=== PATIENT | female | born 1955 | race Caucasian/White ===

== ENCOUNTER 2017-11-14 08:38 | Emergency (ER) | payer BC ==
[~2017-11-14] VITALS: Ht 175.3 cm; Wt 96.0 kg
[~2017-11-14 08:38] MED LIST: CLAR10TA7 PO; CYAN1000P SQ; FLON0.053; VENL37.5 PO; VITA500015 PO; ZOLP1TAB32 PO
[2017-11-14] MEDS ORDERED: GADODIAMIDE PF 287 MG/ML 20 ML VIAL (for RAD MRI) IV PUSH ONE (08:39)
[2017-11-14 08:42] VITALS: PULSE 104; RESP 16; TEMP 98.6; O2SAT 97
[2017-11-14] MEDS ORDERED: SODIUM CHLOR 0.9% 1000 ML INJ 1,000 ML IV SCH (08:54)
[2017-11-14] MEDS ORDERED: ONDANSETRON ODT 4 MG TAB PO ONE (09:00)
[2017-11-14] MEDS ORDERED: KETOROLAC TROMETHAMINE 30 MG/ML (IVP) VIAL IVP ONE (09:00)
[2017-11-14] MEDS ORDERED: MORPHINE SULFATE 4 MG/ML INJ IV PUSH ONE (09:00)
[2017-11-14] MEDS ORDERED: SODIUM CHLORIDE 0.9% FLUSH 10 ML FLUSH IV FLUSH PRN (09:00)
[2017-11-14 09:10] VITALS: O2SAT 97
[2017-11-14 09:10] LABS: BILIRUBIN, URINE NEG (NEG); BLOOD, URINE LARGE (NEG); GLUCOSE,URINE NEG (NEG); KETONE, URINE NEG (NEG); NITRITE,URINE NEG (NEG); PH, URINE 5.5 (5.0-8.5); URINE COLOR YELLOW (YELLW/STRAW); URINE LEUKOCYTE ESTERASE SMALL (NEG)
--- NOTE | 2017-11-14 09:13 | PD ---
HPI Chief Complaint: Complaint Time Seen by Provider: 08:47 Travel History International Travel<30 days: Yes Contact w/Intl Traveler<30days: [place] Country Traveled to: [place] Traveled to known affect area: No History of Present Illness HPI Patient is a 62 year old female who comes in complaining of low back pain. She says she felt as if she were getting the flu last night. She says she had pain to her knees and felt very tired. She says she went to sleep and had severe chills and then the pain to her back started around 10PM. She did not take anything for the pain. She says she tried to go see her PCP, but was told to come to the ED. She says she has had some nausea, but denies vomiting. She says the pain radiates down her legs. She denies numbness or tingling. She says she has never had this pain before. She denies urinary symptoms. Severity is moderate. PFSH Past Medical History Arthritis: Yes (Rt. great toe ) Cancer: Yes (BL breast ) Chemotherapy: Yes Musculoskeletal: Yes (ARTHRITIS RT GREAT TOE) Radiation Therapy: Yes Tetanus Vaccination: < 5 Years Influenza Vaccination: Yes ?: Not Past Surgical History Body Medical Devices: Permanent retainer Pacemaker: No Other Surgery: Yes (Adenoids, eyelids lifted) Social History Alcohol Use: No Tobacco Use: No Substance Use: No Allergies-Medications (Allergen,Severity, Reaction): Coded Allergies: latex (Unverified Allergy, Mild, ADHESIVE TO BANDAID BRAND FABRIC BANDAIDS , 11/14/17) Reported Meds & Prescriptions Reported Meds & Active Scripts Active Reported Claritin (Loratadine) 5 Mg Chew 5 Mg CHEW DAILY Calcium 500 +D (Calcium Carbonate-Cholecalciferol) 500-400 Mg-Unit Tab 1 Tab PO DAILY Flonase Nasal Barry (Fluticasone Nasal Barry) 50 Mcg/Act Barry 50 Mcg EACH NARE BID Review of Systems Except as stated in HPI: all other systems reviewed are Neg General / Constitutional: Positive: Chills, No: Fever HENT: No: Headaches, Lightheadedness Cardiovascular: No: Chest Pain or Discomfort Respiratory: No: Shortness of Breath Gastrointestinal: Positive: Nausea, No: Vomiting, Abdominal Pain Genitourinary: Positive: Flank Pain, No: Dysuria Musculoskeletal: Positive: Pain Skin: No Rash, No Change in Pigmentation Neurologic: No: Weakness, Dizziness Physical Exam Narrative GENERAL: Awake and alert, in no acute distress. SKIN: Focused skin assessment warm/dry. HEAD: Atraumatic. Normocephalic. EYES: Pupils equal and round. No scleral icterus. ENT: Mucous membranes pink and moist. NECK: Trachea midline. No JVD. CARDIOVASCULAR: Regular rate and rhythm. No murmur appreciated. RESPIRATORY: No accessory muscle use. Clear to auscultation. Breath sounds equal bilaterally. GASTROINTESTINAL: Abdomen soft, non-tender, nondistended. MUSCULOSKELETAL: No obvious deformities. No clubbing. No cyanosis. No edema. Tender to palpation across the lower back. Straight leg raise negative. NEUROLOGICAL: Awake and alert. No obvious cranial nerve deficits. Motor grossly within normal limits. Normal speech. PSYCHIATRIC: Appropriate mood and affect; insight and judgment normal. Data Data Last Documented VS Vital Signs Date Time Temp Pulse Resp B/P (MAP) Pulse Ox O2 Delivery O2 Flow Rate FiO2 11/14/17 13:30 86 14 110/57 (74) 96 Room Air 11/14/17 08:42 98.6 Orders Orders Urinalysis - C+S If Indicated (11/14/17 08:44) Complete Blood Count With Diff (11/14/17 08:54) Comprehensive Metabolic Panel (11/14/17 08:54) Ct Abd/Pel W/O Iv Contrast (11/14/17 08:54) Iv Access Insert/Monitor (11/14/17 08:54) Ecg Monitoring (11/14/17 08:54) Oximetry (11/14/17 08:54) Morphine Inj (Morphine Inj) (11/14/17 09:00) Sodium Chlor 0.9% 1000 Ml Inj (Ns 1000 M (11/14/17 08:54) Sodium Chloride 0.9% Flush (Ns Flush) (11/14/17 09:00) Ketorolac Inj (Toradol Inj) (11/14/17 09:00) Ondansetron Odt (Zofran Odt) (11/14/17 09:00) Potassium Chloride (Kcl) (11/14/17 09:30) Chest, Single Ap (11/14/17 ) Influenzae A/B Antigen (11/14/17 09:45) Oxycodone-Acetamin 5-325 Mg (Percocet (11/14/17 10:30) Mri L Spine W&W/O Contrast (11/14/17 ) Labs Laboratory Tests Test 11/14/17 09:00 White Blood Count 16.7 TH/MM3 Red Blood Count 4.28 MIL/MM3 Hemoglobin 12.8 GM/DL Hematocrit 37.7 % Mean Corpuscular Volume 88.2 FL Mean Corpuscular Hemoglobin 29.9 PG Mean Corpuscular Hemoglobin Concent 33.9 % Red Cell Distribution Width 12.2 % Platelet Count 220 TH/MM3 Mean Platelet Volume 8.0 FL Neutrophils (%) (Auto) 93.5 % Lymphocytes (%) (Auto) 3.2 % Monocytes (%) (Auto) 2.0 % Eosinophils (%) (Auto) 0.0 % Basophils (%) (Auto) 1.3 % Neutrophils # (Auto) 15.7 TH/MM3 Lymphocytes # (Auto) 0.5 TH/MM3 Monocytes # (Auto) 0.3 TH/MM3 Eosinophils # (Auto) 0.0 TH/MM3 Basophils # (Auto) 0.2 TH/MM3 CBC Comment AUTO DIFF Differential Total Cells Counted 100 Neutrophils % (Manual) 83 % Band Neutrophils % 11 % Lymphocytes % 1 % Monocytes % 4 % Neutrophils # (Manual) 15.9 TH/MM3 Metamyelocytes 1 % Differential Comment FINAL DIFF MANUAL Platelet Estimate NORMAL Platelet Morphology Comment NORMAL Red Cell Morphology Comment NORMAL Urine Color YELLOW Urine Turbidity CLEAR Urine pH 5.5 Urine Specific [place] 1.025 Urine Protein NEG mg/dL Urine Glucose (UA) NEG mg/dL Urine Ketones NEG mg/dL Urine Occult Blood LARGE Urine Nitrite NEG Urine Bilirubin NEG Urine Urobilinogen 0.2 MG/DL Urine Leukocyte Esterase SMALL Urine WBC 3-5 /hpf Urine Squamous Epithelial Cells 0-5 /hpf Urine Transitional Epithelial Cells 0-5 /hpf Urine Bacteria FEW /hpf Urine Hyaline Casts 0-2 /lpf Microscopic Urinalysis Comment CULT NOT INDICATED Blood Urea Nitrogen 15 MG/DL Creatinine 0.75 MG/DL Random Glucose 112 MG/DL Total Protein 7.1 GM/DL Albumin 3.4 GM/DL Calcium Level 8.6 MG/DL Alkaline Phosphatase 96 U/L Aspartate Amino Transf (AST/SGOT) 15 U/L Alanine Aminotransferase (ALT/SGPT) 18 U/L Total Bilirubin 0.4 MG/DL Sodium Level 138 MEQ/L Potassium Level 3.1 MEQ/L Chloride Level 105 MEQ/L Carbon Dioxide Level 23.7 MEQ/L Anion Gap 9 MEQ/L Estimat Glomerular Filtration Rate 79 ML/MIN MDM Medical Decision Making Medical Screen Exam Complete: Yes Emergency Medical Condition: Yes Medical Record Reviewed: Yes Differential Diagnosis UTI vs renal stone vs sciatica vs abscess Narrative Course Patient is a 62-year-old female comes in complaining of back pain. She says it was preceded by chills last night. Exam shows tenderness to the sacroiliac area. IV established, labs sent. Labs show a white blood cell count of 16.7, no other acute abnormalities. Urinalysis is negative for UTI. She does have occult blood in her urine, which she says she has had for a long time. CT abdomen pelvis performed shows no acute abnormalities. MRI of the spine performed shows no acute abnormalities. Last 24 hours Impressions Abdomen/Pelvis CT 11/14/17 0854 Signed Impressions: CONCLUSION: 1. No renal stones are identified. 2. 2.9 x 3.3 cm simple cyst within the liver. 3. Degenerative changes in the lumbar spine. 4. No free air free fluid seen. Lumbar Spine MRI 11/14/17 0000 Signed Impressions: CONCLUSION: 1. No focal bone lesions are seen. 2. Mild anterior subluxation of L5 on S1. There is possible left pars defect a t the level. 3. Mid and lower lumbar facet hypertrophy. Chest X-Ray 11/14/17 0000 Signed Impressions: CONCLUSION: No acute cardiopulmonary process. Patient given pain medicine. She reports feeling better. She will be discharged with a prescription for pain medicine. She is advised follow-up with her doctor. Advised return as needed for any worsening symptoms. Diagnosis Primary Impression: Back pain Qualified Codes: M54.42 - Lumbago with sciatica, left side; M54.41 - Lumbago with sciatica, right side Patient Instructions: General Instructions, Sciatica (ED) Additional Instructions: Take pain medicine as needed. Follow-up with your doctor. Return to the ED as needed for any worsening symptoms. Scripts Oxycodone-Acetaminophen (Percocet) 5-325 mg Tab 1 TAB PO Q6H Y for PAIN, #10 TAB 0 Refills Prov: Makenna Saini MD 11/14/17 Disposition: 01 DISCHARGE HOME Condition: Stable Makenna Saini MD Nov 14, 2017 09:13
[2017-11-14 09:15] LABS: BACTERIA, URINE FEW /hpf; CHLORIDE 105 MEQ/L (98-107); HYALINE CAST, URINE 0-2 /lpf (RARE); SODIUM (NA) 138 MEQ/L (136-145); SQUAMOUS EPITHELIAL CELL URINE 0-5 /hpf (0-5); TRANSITIONAL EPI CELLS, URINE 0-5 /hpf
[2017-11-14 09:18] LABS: ALBUMIN 3.4 GM/DL (3.4-5.0); AUTOMATED NEUTROPHIL # 15.7 TH/MM3 (1.8-7.7); BASOPHIL # 0.2 TH/MM3 (0-0.2); BASOPHIL % 1.3 % (0.0-2.0); BICARBONATE 23.7 MEQ/L (21.0-32.0); BLOOD UREA NITROGEN 15 MG/DL (7-18); CALCIUM 8.6 MG/DL (8.5-10.1); GLUCOSE,RANDOM 112 MG/DL (74-106); HEMATOCRIT 37.7 % (35.0-46.0); HEMOGLOBIN 12.8 GM/DL (11.6-15.3); LYMPH % 3.2 % (9.0-44.0); LYMPHOCYTE # 0.5 TH/MM3 (1.0-4.8); MEAN CELL VOLUME 88.2 FL (80.0-100.0); MEAN CORPUSCULAR HEMOGLOBIN 29.9 PG (27.0-34.0); MEAN CORPUSCULAR HGB CONC 33.9 % (32.0-36.0); MONOCYTE # 0.3 TH/MM3 (0-0.9); NEUT % 93.5 % (16.0-70.0); PLATELET COUNT 220 TH/MM3 (150-450); RED BLOOD COUNT 4.28 MIL/MM3 (4.00-5.30); RED CELL DISTRIBUTION WIDTH 12.2 % (11.6-17.2); WHITE BLOOD COUNT 16.7 TH/MM3 (4.0-11.0)
[2017-11-14 09:21] LABS: ALT (GPT) 18 U/L (10-53); AST (GOT) 15 U/L (15-37)
[2017-11-14 09:22] LABS: CREATININE 0.75 MG/DL (0.50-1.00); GLOMERULAR FILTRATION RATE 79 ML/MIN (>89)
[2017-11-14 09:23] LABS: TOTAL BILIRUBIN ADULT 0.4 MG/DL (0.2-1.0); TOTAL PROTEIN 7.1 GM/DL (6.4-8.2)
[2017-11-14 09:24] LABS: ALKALINE PHOSPHATASE 96 U/L (45-117)
[2017-11-14] MEDS ORDERED: POTASSIUM CHLORIDE 10 MEQ CONTROLLED RELEASE TAB PO ONE (09:30)
--- NOTE | 2017-11-14 09:34 | RADRPT ---
EXAM DATE: 11/14/2017 9:21 AM EDT AGE/SEX: 62 years / Female INDICATIONS: Bilateral flank pain. CLINICAL DATA: This is the patient's initial encounter. Patient reports that signs and symptoms have been present for 1 day and indicates a pain score of 9/10. MEDICAL/SURGICAL HISTORY: Carcinoma, breast. Hypertension. . Bilateral breast lumpectomy. RADIATION DOSE: 16.77 CTDI (mGy) COMPARISON: No prior exams available for comparison. TECHNIQUE: Multiple contiguous axial images were obtained through the abdomen. Images were obtained using multiple row detector helical technique. Using automated exposure control and adjustment of the mA and/or kV according to patient size, radiation dose was kept as low as reasonably achievable to o btain optimal diagnostic quality images. DICOM format image data is available electronically for rev iew and comparison. FINDINGS: The limited portion of lung base visualized is clear. Examination of the liver demonstrates a 2.9 x 3.3 cm low-attenuation lesion in the inferior aspect of the right lobe of the liver. This measures -18 Hounsfield units and as such is most consistent with a benign simple cyst. The spleen, pancreas and adrenal glands are normal in appearance. Right kidney/ureter: The right kidney is normal in size. There is no hydronephrosis. No stones are se en. The right ureter is followed throughout its course and is unremarkable in appearance. LEFT kidney/ureter: The left kidney is normal in size. There is no hydronephrosis. No stones are seen . The left ureter is followed throughout its course and is unremarkable in appearance. The visualized loops of small and large bowel within the abdomen demonstrate a moderate amount of sto ol within the colon but are otherwise unremarkable. The abdominal aorta is normal in caliber. No retroperitoneal adenopathy is seen. No iliac or inguinal adenopathy is identified. The visualized bony structures demonstrate degenerative changes within the spine but are otherwise in tact. CONCLUSION: 1. No renal stones are identified. 2. 2.9 x 3.3 cm simple cyst within the liver. 3. Degenerative changes in the lumbar spine. 4. No free air free fluid seen. Electronically signed by: Praveen Agudelo MD 11/14/2017 9:32 AM EDT
[2017-11-14 09:38] LABS: BANDS 11 % (0-6); LYMPHOCYTES 1 % (9-44); METAMYELOCYTES 1 % (0-1); MONOCYTES 4 % (0-8); NEUTROPHIL # MANUAL DIFF 15.9 TH/MM3 (1.8-7.7); POLYS (SEG NEUTROPHILS) 83 % (16-70)
[2017-11-14 09:45] VITALS: BP 150/69; PULSE 85; RESP 14; O2SAT 93
--- NOTE | 2017-11-14 10:01 | RADRPT ---
EXAM DATE: 11/14/2017 9:52 AM EDT AGE/SEX: 62 years / Female INDICATIONS: Fever CLINICAL DATA: This is the patient's initial encounter. Patient reports that signs and symptoms have been present for 1 day and indicates a pain score of 3/10. MEDICAL/SURGICAL HISTORY: Carcinoma, breast. None. COMPARISON: [facility] [place], CHEST SINGLE AP, 09/16/2012. . FINDINGS: A single AP view of the chest demonstrates the lungs to be symmetrically aerated without evidence of mass, infiltrate or effusion. The cardiomediastinal contours are unremarkable. Osseous structures a re intact. Clips are seen in the lower outer chest/breast regions bilaterally. CONCLUSION: No acute cardiopulmonary process. Electronically signed by: Fidel Damian MD 11/14/2017 10:00 AM EDT
[2017-11-14] MEDS ORDERED: oxyCODONE/ACETAMINOPHEN 5 MG/325 MG TAB PO ONE (10:30)
[2017-11-14] MEDS ORDERED: LORA1CHW2 CHEW (10:32)
[2017-11-14] MEDS ORDERED: CALC1TAB12 PO (10:32)
[2017-11-14] MEDS ORDERED: FLUT1SPR5 EACH NARE (10:32)
[2017-11-14 11:00] VITALS: BP 139/78; PULSE 90; RESP 18; O2SAT 98
[2017-11-14 13:30] VITALS: BP 110/57; PULSE 86; RESP 14; O2SAT 96
--- NOTE | 2017-11-14 14:42 | RADRPT ---
EXAM DATE: 11/14/2017 1:15 PM EDT AGE/SEX: 62 years / Female INDICATIONS: Pain. Hx of breast ca. CLINICAL DATA: This is the patient's initial encounter. Patient reports that signs and symptoms have been present for 3 days and indicates a pain score of 6/10. MEDICAL/SURGICAL HISTORY: Carcinoma, breast. . Lumpectomy. Adenoids. COMPARISON: No prior exams available for comparison. TECHNIQUE: Multiplanar, multisequence MRI examination of the lumbar spine was performed without and with 18 ml Omniscan (gadodiamide) contrast as a single exam dose. FINDINGS: The most caudal-appearing lumbar vertebra is numbered as L5. Vertebra: The lumbar vertebral bodies are normal in height. There is mild anterior subluxation of L5 on S1. There is possible pars defect seen at the left L5 level. The right pars appears intact. Conus: Normal level and configuration. Post Contrast: No abnormal areas of contrast enhancement are seen. T12-L1: The thecal sac has a normal diameter. No evidence of disc bulge or protrusion. The neural foramina are patent bilaterally. L1-L2: The thecal sac has a normal diameter. No evidence of disc bulge or protrusion. The neural foramina are patent bilaterally. L2-L3: The thecal sac has a normal diameter. No evidence of disc bulge or protrusion. The neural foramina are patent bilaterally. There is facet hypertrophy. L3-L4: The thecal sac has a normal diameter. No evidence of disc bulge or protrusion. The neural foramina are patent bilaterally. There is moderate facet hypertrophy. L4-L5: The thecal sac has a normal diameter. No evidence of disc bulge or protrusion. The neural foramina are patent bilaterally. There is moderate facet hypertrophy. L5-S1: Again noted is the anterior subluxation of L5 on S1. A significant impression from the disc thecal sac is not seen. There is facet hypertrophy. There is a possible pars defect on the left. The neural foramina are grossly patent. CONCLUSION: 1. No focal bone lesions are seen. 2. Mild anterior subluxation of L5 on S1. There is possible left pars defect at the level. 3. Mid and lower lumbar facet hypertrophy. Electronically signed by: Fidel Damian MD 11/14/2017 2:41 PM EDT
[2017-11-14] MEDS ORDERED: PERC5TAB12 PO (15:02)
[2017-11-14 15:20] VITALS: BP 125/60; PULSE 92; RESP 16; O2SAT 96
[2017-11-19] MEDS ORDERED: METR-1 PO (14:53)
== END 2017-11-14 15:20 | disposition home or self-care (01) ==
LOC: PHED 08:38
DX: M54.41 Lumbago with sciatica, right side (principal); M54.42 Lumbago with sciatica, left side; R68.83 Chills (without fever); R11.0 Nausea; K76.89 Other specified diseases of liver; I10 Essential (primary) hypertension; M19.90 Unspecified osteoarthritis, unspecified site; Z85.3 Personal history of malignant neoplasm of breast; Z92.21 Personal history of antineoplastic chemotherapy; Z79.899 Other long term (current) drug therapy
CPT/HCPCS: 71045; 72158; 74176; 80053; 81001; 85007; 85027; 87804; 96361; 96374; 96375; 99285; A9579; J1885; J2270; J7030

== ENCOUNTER 2017-12-05 10:13 | Inpatient (IN) ==
[2017-12-05] MEDS ORDERED: Sod Chloride 0.9% Inj 1,000 ML IV.SIG ONE ×3 (10:54→13:24)
[2017-12-05] MEDS ORDERED: Morphine Inj 4 MG/ML Vial IV.PUSH ONE (10:54)
[2017-12-05] MEDS ORDERED: Acetaminophen 325 MG Tablet PO ONE (10:54)
--- NOTE | 2017-12-05 11:09 | ED ---
HPI General Chief Complaint: Abdominal Pain Stated Complaint: Abd Pain/Diarrhea Time Seen by Provider: 12/05/17 10:42 Source: patient Mode of arrival: ambulatory Limitations: no limitations History of Present Illness HPI narrative: Patient presents complaining with abdominal pain and diarrhea. Onset was 2 days ago. She reports diarrhea every 30 minutes. It is bloody. It is associated with chills. The patient states that she had a similar episode starting on November 14. She was treated empirically with Flagyl for presumed C. difficile. She states her symptoms did improve after a few days. Symptoms then recurred 2 days ago. MD complaint: abdominal pain Onset (ago): day(s) (2) Pain Consistency: constant Location: diffuse Severity scale (1-10): 6 Relieving factors: nothing Exacerbating factors: nothing Context: recent antibiotic use and history of similar episodes Associated symptoms: nausea, diarrhea, chills and hematochezia Treatments prior to arrival: other (Imodium and GasX) Related Data Home Medications Medication Instructions Recorded Confirmed Lactobacillus acidophilus 1 cap PO DAILY 12/05/17 12/05/17 [Probiotic Acidophilus] anastrozole 1 mg PO HS 12/05/17 12/05/17 calcium carbonate [Calcium 600] 1,200 mg PO HS 12/05/17 12/05/17 cholecalciferol (vitamin D3) 1,600 unit PO DAILY 12/05/17 12/05/17 [Vitamin D3] cyanocobalamin (vitamin B-12) 1,000 mcg IM DIRECTED 12/05/17 12/05/17 fluticasone [Flonase Allergy 2 spray INTRANASAL BID PRN 12/05/17 12/05/17 Relief] loratadine [Claritin] 10 mg PO HS 12/05/17 12/05/17 Allergies Allergy/AdvReac Type Severity Reaction Status Date / Time latex Allergy Mild ADHESIVE Verified 12/05/17 10:23 TO BANDAID BRAND FABRIC BANDAIDS Review of Systems Constitutional Reports chills ENT Reports dry mouth Gastrointestinal Reports abdominal pain, Reports hematochezia, Reports tenesmus, Reports cramping , Reports excessive flatus, Reports fecal incontinence, Reports diarrhea and Reports nausea PMFSH Medical History Medical History Bilateral breast cancer (Acute) History of chemotherapy (Acute) History of radiation therapy (Acute) Surgical History Surgical History H/O adenoidectomy (Acute) History of blepharoplasty (Acute) History of lumpectomy of both breasts (Acute) Family History Family History Other Bile duct cancer Colon cancer Lewy body dementia Social History Social History Substance History: No History of Abuse Second Hand Smoke Exposure: No Smoking Status: Never smoker How Often Do You Have a Drink Containing Alcohol: Monthly or less Recent Travel in [facility] within the Last 8 Weeks: No Recent Out of Country Travel within the Last 8 Weeks: No Immunization History Tetanus Immunization: <5 Years Hx Influenza Vaccine This Season: Yes Exam Const General: cooperative, healthy appearing and acute distress mild Orientation: alert, awake and oriented x3 Other: Shivering HENMT Head: normocephalic and atraumatic Mouth: oral mucosa abnormal other (dry) Eyes General: appearance normal, both eyes and all related structures EOM: EOM intact bilaterally Neck Neck: full ROM and supple Chest Chest: normal inspection of the chest Resp Effort & Inspection: normal respiratory effort and able to speak in complete sentences Auscultation: clear to auscultation bilaterally Cardio Rate: tachycardic Rhythm: regular rhythm GI Inspection: normal to inspection and non-distended Palpation: soft and tender in the LLQ Back/Spine/Pelvis Cervical Spine: cervical ROM normal Thoracic/Lumbar Spine: thoraco-lumbar ROM normal Skin General: no rashes or lesions noted and turgor normal Neuro General: alert, awake, oriented x3, moves all extremities and CN's II-XI intact bilaterally Extrem General: normal to inspection and full ROM Psych Appearance: grossly normal Mental Status: mental status grossly normal Speech and Movement: speech and movement normal Mood: congruent mood Affect: normal affect Attitude: cooperative Thought Process: normal Thought Content: normal Judgment: judgment good Course Initial Documented Vital Signs Temperature 98.2 F 12/05/17 10:14 Pulse Rate 104 H 12/05/17 10:14 Respiratory Rate 18 12/05/17 10:14 Blood Pressure 179/87 H 12/05/17 10:14 Pulse Oximetry 100 12/05/17 10:14 Last Documented Vital Signs Temperature 98.2 F 12/05/17 10:14 Pulse Rate 82 12/05/17 13:17 Respiratory Rate 16 12/05/17 13:17 Blood Pressure 93/53 L 12/05/17 13:17 Pulse Oximetry 98 12/05/17 13:17 Medical Decision Making MDM Narrative Medical decision making narrative: This patient presents with crampy abdominal pain and diarrhea. She is having shaking chills. Abdominal pain workup is in process. She will be treated with IV fluids and IV morphine and Zofran. I suspect that she has diverticulitis. Disposition will depend upon the results of her laboratory and radiographic evaluation. She will be given an initial dose of Zosyn here. I have discussed the case with Dr. Lewis who will admit the patient for further evaluation and treatment. Differential Diagnosis Differential Diagnosis: Differential diagnosis of diarrhea includes but is not limited to viral enteritis, bacterial enteritis, antibiotic induced diarrhea, irritable bowel syndrome Lab Data Lab results reviewed: Yes I reviewed the patient's lab results. Result diagrams: 12/05/17 11:02 12/05/17 11:02 Lab Results 12/05/17 12/05/17 Range/Units 11:02 11:02 CBC w Diff Auto diff final WBC 10.1 (4.0-11.0) th/mm3 RBC 4.12 (4.00-5.30) mil/mm3 Hgb 12.5 (11.6-15.3) gm/dL Hct 36.0 (35.0-46.0) % MCV 87.3 (80.0-100.0) fL MCH 30.3 (27.0-34.0) pg MCHC 34.7 (32.0-36.0) % RDW 14.0 (11.6-17.2) % Plt Count 300 (150-450) th/mm3 MPV 9.1 (7.0-11.0) fL Neut % (Auto) 83.6 H (16.0-70.0) % Lymph % (Auto) 7.5 L (9.0-44.0) % [place] % (Auto) 8.2 H (0.0-8.0) % Eos % (Auto) 0.5 (0.0-4.0) % Baso % (Auto) 0.2 (0.0-2.0) % Neut # (Auto) 8.4 H (1.8-7.7) th/mm3 Lymph # (Auto) 0.8 L (1.0-4.8) th/mm3 [place] # (Auto) 0.8 (0.0-0.9) th/mm3 Eos # (Auto) 0.1 (0.0-0.4) th/mm3 Baso # (Auto) 0.0 (0.0-0.2) th/mm3 WBC Differential . Differential Comment . Sodium 138 (136-145) meq/L Potassium 3.6 (3.5-5.1) meq/L Chloride 103 (98-107) meq/L Carbon Dioxide 25.8 (21.0-32.0) meq/L Anion Gap 9 (5-15) meq/L BUN 8 (7-18) mg/dL Creatinine 0.87 (0.50-1.00) mg/dL Estimated GFR 66 L (>89) mL/min Random Glucose 94 (74-106) mg/dL Calcium 8.8 (8.5-10.1) mg/dL Total Bilirubin 0.5 (0.2-1.0) mg/dL AST 15 (15-37) U/L ALT 15 (10-53) U/L Alkaline Phosphatase 77 (45-117) U/L Total Protein 7.1 (6.4-8.2) g/dL Albumin 3.1 L (3.4-5.0) g/dL Lipase 158 (73-393) U/L Imaging Data Radiologist's impression: ITS Impressions Abdomen/Pelvis CT 12/05/17 10:54 CONCLUSION: 1. Diffuse mural thickening of the colon characteristic of a colitis. Colonic inflammatory change. No abscess, obstruction, free fluid or free air. There is also colonic diverticula especially in the sigmoid. Discharge Plan Discharge Disposition Patient Disposition: 30 Still Patient Discharge Details Diagnosis: Colitis Physicians Team ED Provider: Luna Romano Primary Care Provider: Lenora Serrano Attending Provider: Magalis Lewis Other Providers: Jason Arriaga Status ED Status: Admitted Observation Patient
[2017-12-05 12:03] LABS: Baso % (Auto) 0.2 % (0.0-2.0); Eos # (Auto) 0.1 th/mm3 (0.0-0.4); Eos % (Auto) 0.5 % (0.0-4.0); Hemoglobin 12.5 gm/dL (11.6-15.3); Lymph # (Auto) 0.8 th/mm3 (1.0-4.8); Lymph % (Auto) 7.5 % (9.0-44.0); Mean Corpuscular HGB Conc 34.7 % (32.0-36.0); Mean Corpuscular Hemoglobin 30.3 pg (27.0-34.0); Mean Corpuscular Volume 87.3 fL (80.0-100.0); Mean Platelet Volume 9.1 fL (7.0-11.0); Mono # (Auto) 0.8 th/mm3 (0.0-0.9); Mono % (Auto) 8.2 % (0.0-8.0); Neut # (Auto) 8.4 th/mm3 (1.8-7.7); Neut % (Auto) 83.6 % (16.0-70.0); Platelet Count 300 th/mm3 (150-450); Red Blood Count 4.12 mil/mm3 (4.00-5.30); White Blood Count 10.1 th/mm3 (4.0-11.0)
[2017-12-05 12:08] LABS: Chloride 103 meq/L (98-107); Potassium 3.6 meq/L (3.5-5.1); Sodium 138 meq/L (136-145)
[2017-12-05 12:11] LABS: Calcium 8.8 mg/dL (8.5-10.1)
[2017-12-05 12:12] LABS: Albumin 3.1 g/dL (3.4-5.0); Anion Gap 9 meq/L (5-15); Blood Urea Nitrogen 8 mg/dL (7-18); Carbon Dioxide 25.8 meq/L (21.0-32.0); Glucose,Random 94 mg/dL (74-106); Lipase 158 U/L (73-393)
[2017-12-05 12:15] LABS: Alanine Aminotransferase 15 U/L (10-53); Aspartate Aminotransferase 15 U/L (15-37); Glomerular Filtration Rate 66 mL/min (>89)
[2017-12-05 12:16] LABS: Total Protein 7.1 g/dL (6.4-8.2)
[2017-12-05 12:18] LABS: Alkaline Phosphatase 77 U/L (45-117)
--- NOTE | 2017-12-05 13:13 | CT ---
EXAM DATE: 12/05/2017 12:48 PM EDT AGE/SEX: 62 years / Female INDICATIONS: Left lower quadrant pain CLINICAL DATA: This is the patient's initial encounter. Patient reports that signs and symptoms have been present for 1 day and indicates a pain score of 6/10. MEDICAL/SURGICAL HISTORY: None. None. ORAL CONTRAST: No oral contrast ingested. RADIATION DOSE: 17.39 CTDI (mGy) COMPARISON: No prior exams available for comparison. TECHNIQUE: Multiple contiguous axial images were obtained through the abdomen and pelvis following b olus infusion of 95 ml Omnipaque 350 (iohexol) nonionic water-soluble contrast as a single exam dos e. No oral contrast ingested. Using automated exposure control and adjustment of the mA and/or kV ac cording to patient size, radiation dose was kept as low as reasonably achievable to obtain optimal di agnostic quality images. DICOM format image data is available electronically for review and comparis on. FINDINGS: There is diffuse mural thickening of the colon which is worse on the left side most characteristic of a colitis. There is no abscess, obstruction, free fluid or free air. Lung bases are clear. No acute findings in the spleen, adrenals, kidneys or pancreas. No calcified ga llstones. Minimal prominence of the intrahepatic bile ducts. Common bile duct normal. Liver cyst lowe r right lobe. Mild scoliosis. Small hiatal hernia. CONCLUSION: 1. Diffuse mural thickening of the colon characteristic of a colitis. Colonic inflammatory change. N o abscess, obstruction, free fluid or free air. There is also colonic diverticula especially in the s igmoid. Electronically signed by: Ruben Rollins MD 12/05/2017 1:12 PM EDT
[2017-12-05] MEDS ORDERED: Piperacil/Tazo 3.375 GM Premix 50 ML IV.SIG ONE (13:20)
[2017-12-05] MEDS ORDERED: Temazepam 15 MG Capsule PO PRN (13:38)
--- NOTE | 2017-12-05 14:02 | P.HPIM ---
History of Present Illness Primary Care Physician: Lenora Serrano MD Chief Complaint: Weakness and diarrhea History of Present Illness: This patient is a 8-year-old female with minimal past medical history who reports being in [place] 6 weeks ago. Shortly after that she developed an ear infection and was given Ceftin ear. Her primary doctor did follow-up. Shortly after the Ceftin ear she develops diarrhea. Was profuse and watery up to 3 and 4 times a day. She came to the emergency room for further evaluation and was given an empiric course of Flagyl which she did not complete because of recurrent diarrhea and weakness. She actually came to the emergency room twice. She had some abdominal pain which is intermittent and associated with diarrhea. She had no fevers or chills but has felt very lightheaded and dizzy. She also saw her primary care doctor who ordered an outpatient C. difficile test which was negative. She was referred to gastroenterology. Here she has not had a leukocytosis but is grossly weak and hypotensive. She has not put out any urine because of decreased volume status. Patient recommended for admission to the hospital further evaluation due to failed outpatient treatment and symptomatic hypotension. - Diagnosis (1) Diarrhea (2) Acute hypotension Inpatient Certification: I certify that the inpatient services were ordered in accordance with Medicare regulations governing the order. This includes certification that hospital inpatient services are reasonable and necessary and in the case of services not specified as inpatient-only under 42 CFR 419.22(n), that they are appropriately provided as inpatient services in accordance to with the 2-midnight benchmark under 43 CFR 412.3(e) Estimated Total Length of Stay (Days): 2 Plans for Post Hospital Care: Home Review of Systems All other systems reviewed negative except as stated in HPI Constitutional: Reports anorexia, Reports malaise Gastrointestinal: Reports abdominal pain, Reports change in bowel habits, Reports loose stools PMFSH - History History Provided By: Patient - Medical History Medical History: Medical History (Last Reviewed 12/05/17 @ 11:04 by Luna Romano) Bilateral breast cancer History of chemotherapy History of radiation therapy - Surgical History Surgical History: Surgical History (Last Reviewed 12/05/17 @ 11:04 by Luna Romano) H/O adenoidectomy History of blepharoplasty History of lumpectomy of both breasts - Family History Family History: Family History (Last Updated 12/05/17 @ 14:00 by Magalis Lewis MD) Other Bile duct cancer Colon cancer Lewy body dementia - Tobacco History Second Hand Smoke Exposure: No Smoking Status: Never smoker - Alcohol History How Often Do You Have a Drink Containing Alcohol: Monthly or less - Substance Use History Substance History: No History of Abuse - Travel History Recent Travel in the [place] Within the Last 8 Weeks: No Recent Travel Out of the Country Within the Last 8 Weeks: No - Immunization History Tetanus Immunization: <5 Years Hx Influenza Vaccine This Season: Yes Medications and Allergies Active Medications: Active Medications Anastrozole (Arimidex) 1 mg PO HS KINJAL Lactated Ringer's (Lr 1000 Ml Inj) 1,000 mls @ 100 mls/hr IV.CONT .Q10H KINJAL Loratadine (Claritin) 10 mg PO HS KINJAL Metoclopramide HCl (Reglan Inj) 5 mg IV.PUSH Q6HR PRN; Protocol PRN Reason: NAUSEA OR VOMITING Nitazoxanide (Alinia) 500 mg PO Q12HR KINJAL Non-Formulary Medication (Calcium Carbonate [Calcium 600]) 1,200 mg PO HS KINJAL Non-Formulary Medication (Lactobacillus Acidophilus [Probiotic Acidophilus]) 1 cap PO DAILY KINJAL Senna/Docusate Sodium (Kiki-Colace) 1 tab PO BID KINJAL Sodium Chloride (Ns Flush) 2 ml IV.FLUSH PRN PRN PRN Reason: FLUSH AFTER USING IV ACCESS Temazepam (Restoril) 15 mg PO HS PRN PRN Reason: INSOMNIA Vancomycin HCl (Vancomycin Po) 250 mg PO QID KINJAL Vitamin D (Vitamin D3) 1,600 unit PO DAILY KINJAL Allergies Allergy/AdvReac Type Severity Reaction Status Date / Time latex Allergy Mild ADHESIVE Verified 12/05/17 10:23 TO [employer]ANDA[employer] Home Medications Medication Instructions Recorded Confirmed Type Lactobacillus acidophilus 1 cap PO DAILY 12/05/17 12/05/17 History [Probiotic Acidophilus] anastrozole 1 mg PO HS 12/05/17 12/05/17 History calcium carbonate [Calcium 600] 1,200 mg PO HS 12/05/17 12/05/17 History cholecalciferol (vitamin D3) 1,600 unit PO DAILY 12/05/17 12/05/17 History [Vitamin D3] cyanocobalamin (vitamin B-12) 1,000 mcg IM DIRECTED 12/05/17 12/05/17 History fluticasone [Flonase Allergy 2 spray INTRANASAL BID PRN 12/05/17 12/05/17 History Relief] loratadine [Claritin] 10 mg PO HS 12/05/17 12/05/17 History Exam Vital signs: Vital Signs 12/05/17 10:14 12/05/17 10:55 12/05/17 11:25 Temperature 98.2 F Pulse Rate 104 H 93 H Respiratory Rate 18 18 Blood Pressure 179/87 H 130/56 L Pulse Oximetry 100 96 100 12/05/17 12:17 12/05/17 13:17 Temperature Pulse Rate 90 82 Respiratory Rate 16 16 Blood Pressure 97/51 L 93/53 L Pulse Oximetry 96 98 Intake & Output 12/04/17 12/05/17 12/05/17 18:59 06:59 18:59 Intake Total 1000 / 1000 Balance 1000 / 1000 Weight 92.2 kg Intake: IV 1000 / 1000 NS Inj 1,000 ML @ Wide Open IV. 1000 / 1000 SIG BOLUS ONE Rx#:[id number] Other: Date of Last Bowel Movement 12/05/17 Narrative: GENERAL: Patient lightheaded and weak SKIN: Warm and dry. No rashes or ecchymotic injuries EYES: Pupils equal and round. No scleral icterus. No injection or drainage. ENT: External ear exam normal. No acute nasal bleeding or discharge. Mucous membranes pink and moist. CARDIOVASCULAR: Regular rate and rhythm. No murmurs gallops or rubs appreciated RESPIRATORY: Good air flow and effort without accessory muscle use. Clear to auscultation. Breath sounds equal bilaterally. GASTROINTESTINAL: Abdomen soft, non-tender, nondistended. Hepatic and splenic margins not palpable. Hyperactive bowel MUSCULOSKELETAL: Extremities without clubbing, cyanosis, or edema. No obvious deformities. NEUROLOGICAL: Awake and alert. No obvious cranial nerve deficits. Motor grossly within normal limits. Five out of 5 muscle strength in the arms and legs. Normal speech. Results - Labs CBC & Chem 7: 12/05/17 11:02 12/05/17 11:02 Labs: Short CBC 12/05/17 Range/Units 11:02 WBC 10.1 (4.0-11.0) th/mm3 Hgb 12.5 (11.6-15.3) gm/dL Hct 36.0 (35.0-46.0) % Plt Count 300 (150-450) th/mm3 BMP 12/05/17 11:02 Sodium 138 Potassium 3.6 Chloride 103 Carbon Dioxide 25.8 BUN 8 Creatinine 0.87 Calcium 8.8 Liver Function 12/05/17 Range/Units 11:02 Total Bilirubin 0.5 (0.2-1.0) mg/dL AST 15 (15-37) U/L ALT 15 (10-53) U/L Alkaline Phosphatase 77 (45-117) U/L Albumin 3.1 L (3.4-5.0) g/dL - Imaging Impressions Abdomen/Pelvis CT 12/05/17 10:54 CONCLUSION: 1. Diffuse mural thickening of the colon characteristic of a colitis. Colonic inflammatory change. No abscess, obstruction, free fluid or free air. There is also colonic diverticula especially in the sigmoid. Caprini VTE Risk Assessment Caprini VTE Risk Assessment: No/Low Risk (score <= 1) Caprini Risk Assessment Model: Point Value = 1 Point Value = 2 Point Value = 3 Point Value = 5 Age 41-60 Minor surgery BMI > 25 kg/m2 Swollen legs Varicose veins or History of unexplained or recurrent spontaneous Oral contraceptives or hormone replacement Sepsis (< 1 month) Serious lung disease, including pneumonia (< 1 month) Abnormal pulmonary function Acute myocardial infarction Congestive heart failure (< 1 month) History of inflammatory bowel disease Medical patient at bed rest Age 61-74 Arthroscopic surgery Major open surgery (> 45 min) Laparoscopic surgery (> 45 min) Malignancy Confined to bed (> 72 hours) Immobilizing plaster cast Central venous access Age >= 75 History of VTE Family history of VTE Factor V Leiden Prothrombin [id number] Lupus anticoagulant Anticardiolipin antibodies Elevated serum homocysteine Heparin-induced thrombocytopenia Other congenital or acquired thrombophilia Stroke (< 1 month) Elective arthroplasty Hip, pelvis, or leg fracture Acute spinal cord injury (< 1 month) Prophylaxis Regimen: Total Risk Factor Score Risk Level Prophylaxis Regimen 0-1 Low Early ambulation 2 Moderate Order ONE of the following: *Sequential Compression Device (SCD) *Heparin 5000 units SQ BID 3-4 Higher Order ONE of the following medications: *Heparin 5000 units SQ TID *Enoxaparin/Lovenox 40 mg SQ daily (WT < 150 kg, CrCl > 30 mL/min) *Enoxaparin/Lovenox 30 mg SQ daily (WT < 150 kg, CrCl > 10-29 mL/min) *Enoxaparin/Lovenox 30 mg SQ BID (WT < 150 kg, CrCl > 30 mL/min) AND/OR *Sequential Compression Device (SCD) 5 or more Highest Order ONE of the following medications: *Heparin 5000 units SQ TID (Preferred with Epidurals) *Enoxaparin/Lovenox 40 mg SQ daily (WT < 150 kg, CrCl > 30 mL/min) *Enoxaparin/Lovenox 30 mg SQ daily (WT < 150 kg, CrCl > 10-29 mL/min) *Enoxaparin/Lovenox 30 mg SQ BID (WT < 150 kg, CrCl > 30 mL/min) AND *Sequential Compression Device (SCD) Assessment and Plan - Assessment (1) Diarrhea Code(s): R19.7 - Diarrhea, unspecified Status: Acute Plan: Continue with Alinia and vancomycin C. difficile pending (recent outpatient C. difficile negative status post Ceftin ear for ear infection) Follow-up enteric pathogens, Giardia and leukocytes (2) Acute hypotension Code(s): I95.9 - Hypotension, unspecified Status: Acute Plan: Secondary to 3 weeks of diarrhea, continue IV hydration Follow-up blood pressure and electrolytes
[2017-12-05] MEDS ORDERED: Famotidine PF Inj 20 MG/2 ML Vial IV.PUSH ONE (14:30)
[2017-12-05] MEDS ORDERED: MethylPREDNISolone Sod Succinate Inj 40 MG/ML Vial IV.PUSH ONE (14:30)
[2017-12-05 15:20] LABS: Bilirubin,Urine Negative (Negative); Clarity,Urine Clear (Clear); Color,Urine Yellow (Yellw/Straw); Glucose,Urine (UA) Negative (Negative); Leukocyte Esterase,Urine Negative (Negative); Nitrite,Urine Negative (Negative); PH,Urine 7.5 (5.0-8.5); Specific Gravity,Urine Less/Equal 1.005 (1.002-1.035); Urobilinogen,Urine 0.2 mg/dL (Less than 2)
[2017-12-05 15:25] LABS: RBC,Urine 0-3 /hpf (0-3); WBC,Urine 0-5 /hpf (0-5)
[2017-12-05] MEDS ORDERED: Loratadine 10 MG Tablet PO SCH (21:00)
[2017-12-05] MEDS ORDERED: Anastrozole 1 MG Tablet PO SCH (21:00)
[2017-12-05] MEDS ORDERED: Calcium Carbonate 500 MG Tablet PO SCH (21:00)
[2017-12-05] MEDS: Senna/Docusate Sodium 8.6/50 MG Tablet PO SCH (21:33)
[2017-12-06 07:13] LABS: Potassium 3.9 meq/L (3.5-5.1)
[2017-12-06 07:16] LABS: Calcium 8.4 mg/dL (8.5-10.1)
[2017-12-06] MEDS: Senna/Docusate Sodium 8.6/50 MG Tablet PO SCH (08:43)
[2017-12-06] MEDS ORDERED: Lactobacillus Acidophilus/L. Spores Tablet PO SCH (09:00)
--- NOTE | 2017-12-06 09:17 | P.PNIM ---
Subjective Interval history: Diarrhea improved. C. difficile positive. Patient feels well. Tolerating diet. Plan of care discussed with patient and spouse at bedside as well as nursing team Physical Exam Vital signs: Vital Signs 12/05/17 10:14 12/05/17 10:55 12/05/17 11:25 Temperature 98.2 F Pulse Rate 104 H 93 H Respiratory Rate 18 18 Blood Pressure 179/87 H 130/56 L Pulse Oximetry 100 96 100 12/05/17 12:17 12/05/17 13:17 12/05/17 13:38 Temperature Pulse Rate 90 82 91 H Respiratory Rate 16 16 18 Blood Pressure 97/51 L 93/53 L 108/57 L Pulse Oximetry 96 98 12/05/17 14:32 12/05/17 16:00 12/05/17 20:00 Temperature 99.1 F 99.8 F H Pulse Rate 88 83 73 Respiratory Rate 18 16 20 Blood Pressure 132/45 L 121/61 106/55 L Pulse Oximetry 97 97 96 12/06/17 00:00 12/06/17 07:36 Temperature 97.1 F L Pulse Rate 72 77 Respiratory Rate 20 20 Blood Pressure 116/59 L 137/66 Pulse Oximetry 95 100 Intake & Output 12/05/17 12/06/17 12/06/17 18:59 06:59 18:59 Intake Total 1000 / 1000 3050 / 3050 Balance 1000 / 1000 3050 / 3050 Weight 92.2 kg 99.4 kg Intake: IV 1000 / 1000 3050 / 3050 LR 1000 mL Inj 1,000 ML @ 100 1000 / 1000 mls/hr IV.CONT .Q10H KINJAL Rx#: [id number] NS Inj 1,000 ML @ Wide Open IV. 1000 / 1000 2000 / 1999 SIG BOLUS ONE Rx#:[id number] Oral 0 / 0 0 / 0 Other: # Voids 2 4 Date of Last Bowel Movement 12/05/17 # Bowel Movements 0 Narrative: \GENERAL: Patient calm resting and without complaints SKIN: Warm and dry. No rashes or ecchymotic injuries EYES: Pupils equal and round. No scleral icterus. No injection or drainage. ENT: External ear exam normal. No acute nasal bleeding or discharge. Mucous membranes pink and moist. CARDIOVASCULAR: Regular rate and rhythm. No murmurs gallops or rubs appreciated RESPIRATORY: Good air flow and effort without accessory muscle use. Clear to auscultation. Breath sounds equal bilaterally. GASTROINTESTINAL: Abdomen soft, non-tender, nondistended. Hepatic and splenic margins not palpable. MUSCULOSKELETAL: Extremities without clubbing, cyanosis, or edema. No obvious deformities. NEUROLOGICAL: Awake and alert. No obvious cranial nerve deficits. Motor grossly within normal limits. Five out of 5 muscle strength in the arms and legs. Normal speech. Results - Labs CBC & Chem 7: 12/05/17 11:02 12/06/17 06:13 Laboratory Results - last 24 hr 12/05/17 12/05/17 12/05/17 11:02 11:02 11:20 CBC w Diff Auto diff final WBC 10.1 RBC 4.12 Hgb 12.5 Hct 36.0 MCV 87.3 MCH 30.3 MCHC 34.7 RDW 14.0 Plt Count 300 MPV 9.1 Neut % (Auto) 83.6 H Lymph % (Auto) 7.5 L [place] % (Auto) 8.2 H Eos % (Auto) 0.5 Baso % (Auto) 0.2 Neut # (Auto) 8.4 H Lymph # (Auto) 0.8 L [place] # (Auto) 0.8 Eos # (Auto) 0.1 Baso # (Auto) 0.0 WBC Differential . Differential Comment . Sodium 138 Potassium 3.6 Chloride 103 Carbon Dioxide 25.8 Anion Gap 9 BUN 8 Creatinine 0.87 Estimated GFR 66 L Random Glucose 94 Calcium 8.8 Total Bilirubin 0.5 AST 15 ALT 15 Alkaline Phosphatase 77 Total Protein 7.1 Albumin 3.1 L Lipase 158 Urine Color Urine Clarity Urine pH Ur Specific [place] Urine Protein Urine Glucose (UA) Urine Ketones Urine Occult Blood Urine Nitrate Urine Bilirubin Urine Urobilinogen Ur Leukocyte Esterase Urine RBC Urine WBC Micro UA Comment Urine Culture Comments Stl C.difficile Tox PCR Positive H St C. diff Tox Epid 027 Negative 12/05/17 12/06/17 15:11 06:13 CBC w Diff WBC RBC Hgb Hct MCV MCH MCHC RDW Plt Count MPV Neut % (Auto) Lymph % (Auto) [place] % (Auto) Eos % (Auto) Baso % (Auto) Neut # (Auto) Lymph # (Auto) [place] # (Auto) Eos # (Auto) Baso # (Auto) WBC Differential Differential Comment Sodium 143 Potassium 3.9 Chloride 109 H Carbon Dioxide 26.0 Anion Gap 8 BUN 6 L Creatinine 0.69 Estimated GFR 87 L Random Glucose 95 Calcium 8.4 L Total Bilirubin AST ALT Alkaline Phosphatase Total Protein Albumin Lipase Urine Color Yellow Urine Clarity Clear Urine pH 7.5 Ur Specific [place] Less/equal 1.005 Urine Protein Negative Urine Glucose (UA) Negative Urine Ketones Negative Urine Occult Blood Small H Urine Nitrate Negative Urine Bilirubin Negative Urine Urobilinogen 0.2 Ur Leukocyte Esterase Negative Urine RBC 0-3 Urine WBC 0-5 Micro UA Comment Culture not ind Urine Culture Comments Culture not ind Stl C.difficile Tox PCR St C. diff Tox Epid 027 - Imaging Impressions Abdomen/Pelvis CT 12/05/17 10:54 CONCLUSION: 1. Diffuse mural thickening of the colon characteristic of a colitis. Colonic inflammatory change. No abscess, obstruction, free fluid or free air. There is also colonic diverticula especially in the sigmoid. Assessment and Plan - Assessment (1) Diarrhea Code(s): R19.7 - Diarrhea, unspecified Status: Acute Plan: C. difficile positive, continue p.o. vancomycin and lactobacillus (2) Acute hypotension Code(s): I95.9 - Hypotension, unspecified Status: Acute Plan: Resolved, DC IV fluids and continue p.o. - Plan Discharge Planning: Likely discharge in a.m. on oral antibiotic
[2017-12-06] MEDS ORDERED: Acetaminophen 325 MG Tablet PO PRN (10:45)
== END 2017-12-06 18:20 | disposition home or self-care (01) ==
LOC: PHEDA 10:13 → PH3 10:13 → PHED 10:13 → OBSVTOIN 13:25 → PHEDA 15:17 → PH3 15:23
PROVIDERS: ADMIT Hospitalist; ATTEND Hospitalist